=== PATIENT | female | born 1955 | race Caucasian/White ===

== ENCOUNTER 2017-07-10 16:16 | Outpatient (CLI) | END 2017-07-10 16:17 | disposition home or self-care (01) | LOC: LAB 16:16 | PROVIDERS: ATTEND Family Medicine | DX: R63.5 Abnormal weight gain (principal); Z13.220 Encounter for screening for lipoid disorders; Z68.26 Body mass index [BMI] 26.0-26.9, adult | CPT/HCPCS: 36415; 80053; 80061; 85025 ==

== ENCOUNTER 2017-08-18 11:57 | Outpatient (CLI) ==
--- NOTE | 2017-08-18 14:43 | DI ---
EXAM: Radiographs, left shoulder HISTORY: Left shoulder adhesive capsulitis. COMPARISON: None available. TECHNIQUE: Three views. FINDINGS: Bone mineralization is decreased. There is no fracture or dislocation. Mild acromioclavi cular joint space narrowing noted. There is mild spurring at the inferior glenohumeral joint. No er osions are seen. No focal soft tissue abnormality is seen. IMPRESSION: Mild osteoarthritis.
== END 2017-08-18 11:58 | disposition home or self-care (01) ==
LOC: RAD 11:57
PROVIDERS: ATTEND Family Medicine
DX: M62.838 Other muscle spasm (principal); M75.02 Adhesive capsulitis of left shoulder